=== PATIENT | female | born 1955 | race Caucasian/White ===

== ENCOUNTER 2016-09-06 | Outpatient (CLI) | payer MEDICARE, MEDICAID | END 2016-09-06 09:26 | disposition critical access hospital (66) | DX: M54.9 Dorsalgia, unspecified (principal) | CPT/HCPCS: A0425; A0427 ==

== ENCOUNTER 2016-09-06 09:41 | Emergency (ER) | payer MEDICARE, MEDICAID ==
[2016-09-06] MEDS ORDERED: DEXAMETHASONE 10 MG/ML VIAL IVP STA (09:56)
[2016-09-06] MEDS ORDERED: ONDANSETRON 4 MG/2 ML VIAL IVP STA (09:56)
[2016-09-06] MEDS ORDERED: HYDROmorphone 1 MG/ML SYRINGE IVP STA (09:56)
[2016-09-06] MEDS ORDERED: DEXAMETHASONE 10 MG/ML VIAL ONE (09:59)
[2016-09-06] MEDS ORDERED: ONDANSETRON 4 MG/2 ML VIAL ONE (09:59)
[2016-09-06] MEDS ORDERED: HYDROmorphone 1 MG/ML SYRINGE ONE (09:59)
== END 2016-09-06 11:05 | disposition home or self-care (01) ==
DX: M54.32 Sciatica, left side (principal); I10 Essential (primary) hypertension; J44.9 Chronic obstructive pulmonary disease, unspecified; E05.90 Thyrotoxicosis, unspecified without thyrotoxic crisis or storm; K21.9 Gastro-esophageal reflux disease without esophagitis; M06.9 Rheumatoid arthritis, unspecified; Z79.82 Long term (current) use of aspirin
CPT/HCPCS: 96374; 96375; 99283; 99284; J1170

== ENCOUNTER 2016-10-10 11:50 | Outpatient (CLI) | payer MEDICARE, MEDICAID | END 2016-10-10 11:51 | DX: I10 Essential (primary) hypertension (principal) ==